=== PATIENT | male | born 1980 | race Two or more races ===

== ENCOUNTER 2017-02-20 15:25 | Emergency (ER) | payer SELFPAY ==
[~2017-02-20] VITALS: Ht 172.7 cm; Wt 95.3 kg
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
[2017-02-20] MEDS ORDERED: HYDROCODONE/APAP 5/325MG 1 EACH TABLET ONE ×2 (16:07→17:39)
--- NOTE | 2017-02-20 16:10 | NUR ---
MEDICATED PATIENT PER MD ORDERS.
--- NOTE | 2017-02-20 16:16 | NUR ---
CORE SETTER AT BEDSIDE.
[2017-02-20] MEDS ORDERED: HYDROCODONE/APAP 5/325MG 1 EACH TABLET PO ONE ×2 (16:30→18:00)
--- NOTE | 2017-02-20 18:05 | NUR ---
EMT AT BEDSIDE FOR WRIST SPLINT.
[2017-02-20 18:13] VITALS: BP 124/78
--- NOTE | 2017-02-20 18:13 | NUR ---
Patient discharged to home in stable condition. Written and verbal after care instructions given. Patient verbalizes understanding of instruction.
== END 2017-02-20 18:25 | disposition home or self-care (01) ==
LOC: ER 15:30
DX: S62.112A Displaced fracture of triquetrum [cuneiform] bone, left wrist, initial encounter for closed fracture (principal); V19.20XA Unspecified pedal cyclist injured in collision with unspecified motor vehicles in nontraffic accident, initial encounter; Y93.89 Activity, other specified; Y92.488 Other paved roadways as the place of occurrence of the external cause; Y99.8 Other external cause status
CPT/HCPCS: 29125; 73130; 73200; 99284; A4606; Z7610